=== PATIENT | male | born 1995 | race African-American/Black ===

== ENCOUNTER 2023-04-27 16:15 | Emergency (ER) | payer SELFPAY ==
[~2023-04-27] VITALS: Ht 182.9 cm; Wt 83.9 kg
[2023-04-27 16:23] VITALS: O2SAT 99
[2023-04-27] MEDS ORDERED: IBUPROFEN 600MG TABLET PO ONE (18:00)
[2023-04-27] MEDS ORDERED: NAPR-1129 MT (18:10)
[2023-04-27 18:57] VITALS: BP 113/72; PULSE 80; RESP 16; TEMP 98.2
== END 2023-04-27 18:58 | disposition home or self-care (01) ==
LOC: ER 16:15
DX: S13.4XXA Sprain of ligaments of cervical spine, initial encounter (principal); V98.8XXA Other specified transport accidents, initial encounter; Y93.89 Activity, other specified; Y92.89 Other specified places as the place of occurrence of the external cause; Y99.8 Other external cause status
CPT/HCPCS: 99282